=== PATIENT | female | born 1990 | race American Indian/Alaskan Native ===

== ENCOUNTER 2018-06-24 12:25 | Emergency (ER) | payer BC ==
[2018-06-24 12:52] VITALS: O2SAT 100
[2018-06-24 13:58] LABS: BASO # 0.1 K/uL (0.0-0.2); BASO % 0.5 % (0.0-2.0); EOS # 0.2 K/uL (0.0-0.7); EOS % 1.5 % (0.0-4.0); HEMOGLOBIN 14.5 g/dL (11.0-16.0); LYMPH # 2.3 K/uL (1.0-4.3); LYMPH % 21.6 % (20.0-40.0); MEAN CELL VOLUME 88.4 fL (81.0-99.0); MEAN CORPUSCULAR HEMOGLOBIN 30.4 pg (27.0-31.0); MEAN CORPUSCULAR HGB CONC 34.4 g/dL (33.0-37.0); MEAN PLATELET VOLUME 9.3 fL (7.2-11.7); MONO # 0.9 K/uL (0.0-0.8); NEUT # 7.4 K/uL (1.8-7.0); NEUT % 68.4 % (50.0-75.0); RBC 4.78 Mil/uL (3.80-5.20); RED CELL DISTRIBUTION WIDTH 13.6 % (11.5-14.5); WHITE BLOOD COUNT 10.8 K/uL (4.8-10.8)
--- NOTE | 2018-06-24 14:49 | C.PDOC ---
History Of Present Illness 28 y/o female presents to the ED requesting a RhoGam shot. States she saw her OBGYN Dr. Paris, found out she was and took a pill to have a miscarriage on Friday. Since then patient reports developing pelvic cramping and some vaginal bleeding. Patient was instructed to come in to the ER and have RhoGam injection, since her blood type is A negative. Denies n/v, back pain, abdominal pain, dizziness, vaginal discharge, or fever. Time Seen by Provider: 06/24/18 13:02 Chief Complaint (Nursing): Medical Clearance History Per: Patient History/Exam Limitations: no limitations Onset/Duration Of Symptoms: Hrs Current Symptoms Are (Timing): Still Present Reports Recently: Treated By A Physician Past Medical History Reviewed: Historical Data, Nursing Documentation, Vital Signs Vital Signs: Last Vital Signs Temp 98.1 F 06/24/18 15:52 Pulse 74 06/24/18 15:52 Resp 16 06/24/18 15:52 BP 116/72 06/24/18 15:52 Pulse Ox 100 06/24/18 15:52 - Medical History PMH: No Chronic Diseases Surgical History: Appendectomy Family History: States: No Known Family Hx - Social History Hx Tobacco Use: No Hx Alcohol Use: Yes Hx Substance Use: No - Immunization History Hx Tetanus Toxoid Vaccination: No Hx Influenza Vaccination: No Hx Pneumococcal Vaccination: No Review Of Systems Constitutional: Negative for: Fever Respiratory: Negative for: Shortness of Breath Gastrointestinal: Positive for: Abdominal Pain (cramping). Negative for: Nausea , Vomiting Genitourinary: Positive for: Vaginal Bleeding. Negative for: Dysuria, Frequency , Incontinence, Vaginal Discharge Neurological: Negative for: Headache, Dizziness Physical Exam - Physical Exam Appears: Well, Non-toxic, No Acute Distress Skin: Normal Color, Warm, Dry Head: Atraumatic, Normacephalic Eye(s): bilateral: Normal Inspection, EOMI Nose: Normal Oral Mucosa: Moist Neck: Normal ROM, Supple Chest: Symmetrical Respiratory: No Accessory Muscle Use Gastrointestinal/Abdominal: Soft, No Tenderness, No Distention, No Guarding Back: No CVA Tenderness, No Vertebral Tenderness Extremity: Normal ROM Extremity: Bilateral: Atraumatic, Normal Color And Temperature, Normal ROM Neurological/Psych: Oriented x3, Normal Speech, Other (no focal deficits) ED Course And Treatment - Laboratory Results Result Diagrams: 06/24/18 13:52 O2 Sat by Pulse Oximetry: 100 (RA) Pulse Ox Interpretation: Normal Progress Note: Blood work and type/screen ordered. Administered rhogam. CAse discussed with Dr Frances, agreed upon plan and treatment. Disposition - Disposition Disposition: HOME/ ROUTINE Disposition Time: 15:42 Condition: STABLE Additional Instructions: Follow up with Dr Paris as scheduled, return to ER if symptoms persist or worsen. Instructions: Rho(D) Immune Globulin Forms: Meeting To You (Citizen Of [place]) - Clinical Impression Clinical Impression: Blood type, Rh negative, Miscarriage - PA / AEMT / Resident Statement MD/DO has reviewed & agrees with the documentation as recorded. - Scribe Statement The provider has reviewed the documentation as recorded by the Scribe (Aida Salmon) All medical record entries made by the Scribe were at my direction and personally dictated by me. I have reviewed the chart and agree that the record accurately reflects my personal performance of the history, physical exam, medical decision making, and the department course for this patient. I have also personally directed, reviewed, and agree with the discharge instructions and disposition.
[2018-06-24 15:55] VITALS: BP 116/72; PULSE 74; RESP 16; TEMP 98.1
== END 2018-06-24 15:55 | disposition home or self-care (01) ==
LOC: C.ER 12:25
DX: O03.9 Complete or unspecified spontaneous abortion without complication (principal); Z67.11 Type A blood, Rh negative
CPT/HCPCS: 84702; 85025; 86850; 86900; 99282; J2792